=== PATIENT | female | born 1980 | race Hispanic/Latino ===

== ENCOUNTER 2019-08-05 17:48 | Emergency (ER) | payer OTHER ==
[~2019-08-05] VITALS: Ht 165.1 cm; Wt 103.9 kg
--- OUTSIDE RECORDS SUMMARY | 2019-08-05 17:50 | XMS REPORT ---
[facility] Address Unknown Phone Unavailable Care Team [facility] Assistant Name Role Phone Unavailable Unavailable Payers Payer Name Policy Type Policy Number Effective Date Expiration Date Problems This patient has no known problems. Allergies, Adverse Reactions, Alerts Allergy Name Allergy Type Status Severity Reaction(s) Onset Date Inactive Date Treating Clinician Comments morphine DA Active U 2019-06-27 00:00:00 ibuprofen DA Active MO 2019-06-27 00:00:00 promethazine DA Active U 2019-06-27 00:00:00 morphine DA Active MO 2018-11-22 00:00:00 ibuprofen DA Active MO 2018-11-22 00:00:00 morphine DA Active U 2018-09-02 00:00:00 ibuprofen DA Active MO 2018-09-02 00:00:00 promethazine DA Active U 2018-09-02 00:00:00 morphine DA Active U 2018-03-16 00:00:00 ibuprofen DA Active MO 2018-03-16 00:00:00 promethazine DA Active U 2018-03-16 00:00:00 Medications This patient has no known medications. Encounters Start Date/Time End Date/Time Encounter Type Admission Type Attending Clinicians Care Facility Care Department Encounter ID 2019-08-03 00:00:00 2019-08-03 00:00:00 Outpatient [facility] [id number] 2019-07-31 00:00:00 2019-07-31 00:00:00 Outpatient [facility] [id number] 2019-07-23 00:00:00 2019-07-23 00:00:00 Outpatient [facility] [id number] 2019-05-25 00:00:00 2019-05-25 00:00:00 Outpatient [facility] [id number] 2019-05-09 00:00:00 2019-05-09 00:00:00 Outpatient [facility] [id number] 2019-05-01 00:00:00 2019-05-01 00:00:00 Outpatient [facility] [id number] 2019-04-25 00:00:00 2019-04-25 00:00:00 Outpatient [facility] [id number] 2019-04-10 00:00:00 2019-04-10 00:00:00 Outpatient [facility] [id number] 2019-04-04 00:00:00 2019-04-04 00:00:00 Outpatient [facility] [id number] 2019-03-26 00:00:00 2019-03-26 00:00:00 Outpatient [facility] [id number] 2019-03-26 00:00:00 2019-03-26 00:00:00 Outpatient [facility] [id number] 2019-03-22 15:19:06 2019-03-22 15:19:06 Outpatient [facility] [id number] 2019-03-14 08:04:13 2019-03-14 08:04:13 Outpatient [facility] [id number] 2019-03-13 08:53:59 2019-03-13 08:53:59 Outpatient [facility] [id number] 2019-02-16 00:00:00 2019-02-16 00:00:00 Outpatient [facility] [id number] 2019-02-15 13:45:34 2019-02-15 13:45:34 Outpatient [facility] [id number] 2019-02-06 00:00:00 2019-02-06 00:00:00 Outpatient [facility] [id number] 2019-01-30 00:00:00 2019-01-30 00:00:00 Outpatient [facility] [id number] 2019-01-26 08:40:28 2019-01-26 08:40:28 Outpatient [facility] [id number] 2019-01-23 00:00:00 2019-01-23 00:00:00 Outpatient [facility] [id number] 2019-01-22 00:00:00 2019-01-22 00:00:00 Outpatient [facility] [id number] 2019-01-11 07:57:14 2019-01-11 07:57:14 Outpatient [facility] [id number] 2019-01-11 06:27:18 2019-01-11 06:27:18 Outpatient [facility] [id number] 2019-01-10 00:00:00 2019-01-10 00:00:00 Outpatient [facility] [id number] 2019-01-09 09:04:26 2019-01-09 09:04:26 Outpatient [facility] [id number] 2019-01-09 07:59:37 2019-01-09 07:59:37 Outpatient [facility] [id number] 2019-01-04 00:00:00 2019-01-04 00:00:00 Outpatient [facility] [id number] 2018-12-28 09:22:50 2018-12-28 09:22:50 Outpatient [facility] [id number] 2018-12-28 07:56:00 2018-12-28 07:56:00 Outpatient [facility] [id number] 2018-12-28 00:00:00 2018-12-28 00:00:00 Outpatient [facility] [id number] 2018-12-27 08:16:24 2018-12-27 08:16:24 Outpatient [facility] [id number] 2018-12-27 08:10:11 2018-12-27 08:10:11 Outpatient [facility] [id number] 2018-12-26 00:00:00 2018-12-26 00:00:00 Outpatient [facility] [id number] 2018-12-19 11:13:35 2018-12-19 11:13:35 Outpatient [facility] [id number] 2018-12-18 14:50:53 2018-12-18 14:50:53 Outpatient [facility] [id number] 2018-12-18 00:00:00 2018-12-18 00:00:00 Outpatient [facility] [id number] 2018-12-11 15:44:35 2018-12-11 15:44:35 Outpatient [facility] [id number] 2018-12-11 14:32:00 2018-12-11 14:32:00 Outpatient [facility] [id number] 2018-12-08 00:00:00 2018-12-08 00:00:00 Outpatient [facility] [id number] 2018-12-07 00:00:00 2018-12-07 00:00:00 Outpatient [facility] [id number] 2018-11-24 00:00:00 2018-11-24 00:00:00 Outpatient [facility] [id number] 2018-11-16 15:02:30 2018-11-16 15:02:30 Outpatient [facility] [id number] 2018-11-09 00:00:00 2018-11-09 00:00:00 Outpatient [facility] [id number] 2018-10-27 10:23:18 2018-10-27 10:23:18 Outpatient [facility] [id number] 2018-10-27 10:11:06 2018-10-27 10:11:06 Outpatient [facility] [id number] 2018-10-25 14:40:01 2018-10-25 14:40:01 Outpatient [facility] [id number] 2018-10-10 00:00:00 2018-10-10 00:00:00 Outpatient [facility] [id number] 2018-10-02 13:47:38 2018-10-02 13:47:38 Outpatient [facility] [id number] 2018-09-25 13:38:29 2018-09-25 13:38:29 Outpatient [facility] [id number] 2018-09-25 00:00:00 2018-09-25 00:00:00 Outpatient [facility] [id number] 2018-09-08 00:00:00 2018-09-08 00:00:00 Outpatient [facility] [id number] 2018-09-07 00:00:00 2018-09-07 00:00:00 Outpatient [facility] [id number] 2018-09-04 00:00:00 2018-09-04 00:00:00 Outpatient [facility] [id number] 2018-08-28 00:00:00 2018-08-28 00:00:00 Outpatient [facility] [id number] 2018-08-28 00:00:00 2018-08-28 00:00:00 Outpatient [facility] [id number] 2018-08-24 09:16:48 2018-08-24 09:16:48 Outpatient [facility] [id number] 2018-08-24 00:00:00 2018-08-24 00:00:00 Outpatient [facility] [id number] 2018-08-24 00:00:00 2018-08-24 00:00:00 Outpatient [facility] [id number] 2018-08-23 00:00:00 2018-08-23 00:00:00 Outpatient [facility] [id number] 2018-08-16 09:03:56 2018-08-16 09:03:56 Outpatient [facility] [id number] 2018-08-16 00:00:00 2018-08-16 00:00:00 Outpatient [facility] [id number] 2018-08-09 00:00:00 2018-08-09 00:00:00 Outpatient [facility] [id number] 2018-08-07 06:58:09 2018-08-07 06:58:09 Outpatient [facility] [id number] 2018-08-04 13:37:05 2018-08-04 13:37:05 Outpatient [facility] [id number] 2018-07-28 00:00:00 2018-07-28 00:00:00 Outpatient [facility] [id number] 2018-07-20 09:11:02 2018-07-20 09:11:02 Outpatient [facility] [id number] 2018-07-20 00:00:00 2018-07-20 00:00:00 Outpatient [facility] [id number] 2018-07-13 00:00:00 2018-07-13 00:00:00 Outpatient [facility] [id number] 2018-07-12 15:11:04 2018-07-12 15:11:04 Outpatient [facility] [id number] 2018-07-12 14:07:33 2018-07-12 14:07:33 Outpatient [facility] [id number] 2018-07-07 10:34:55 2018-07-07 10:34:55 Outpatient [facility] [id number] 2018-07-05 09:11:46 2018-07-05 09:11:46 Outpatient [facility] [id number] 2018-07-05 00:00:00 2018-07-05 00:00:00 Outpatient [facility] [id number] 2018-07-03 00:00:00 2018-07-03 00:00:00 Outpatient [facility] [id number] 2018-06-30 14:25:33 2018-06-30 14:25:33 Outpatient [facility] [id number] 2018-06-23 00:00:00 2018-06-23 00:00:00 Outpatient [facility] [id number] 2018-06-16 00:00:00 2018-06-16 00:00:00 Outpatient [facility] [id number] 2018-06-15 00:00:00 2018-06-15 00:00:00 Outpatient [facility] [id number] 2018-06-14 00:00:00 2018-06-14 00:00:00 Outpatient [facility] [id number] 2018-06-13 00:00:00 2018-06-13 00:00:00 Outpatient [facility] [id number] 2018-06-12 00:00:00 2018-06-12 00:00:00 Outpatient [facility] [id number] 2018-06-12 00:00:00 2018-06-12 00:00:00 Outpatient [facility] [id number] 2018-06-08 00:00:00 2018-06-08 00:00:00 Outpatient [facility] [id number] 2018-06-07 00:00:00 2018-06-07 00:00:00 Outpatient [facility] [id number] 2018-05-22 00:00:00 2018-05-22 00:00:00 Outpatient [facility] [id number] 2018-05-16 00:00:00 2018-05-16 00:00:00 Outpatient [facility] [id number] 2018-05-05 12:41:04 2018-05-05 12:41:04 Outpatient [facility] [id number] 2018-05-04 00:00:00 2018-05-04 00:00:00 Outpatient [facility] [id number] 2018-05-01 00:00:00 2018-05-01 00:00:00 Outpatient [facility] [id number] 2018-04-26 00:00:00 2018-04-26 00:00:00 Outpatient [facility] [id number] 2018-04-24 00:00:00 2018-04-24 00:00:00 Outpatient [facility] [id number] 2018-04-21 00:00:00 2018-04-21 00:00:00 Outpatient [facility] [id number] 2018-04-20 13:00:06 2018-04-20 13:00:06 Outpatient [facility] [id number] 2018-04-18 00:00:00 2018-04-18 00:00:00 Outpatient [facility] [id number] 2018-04-12 07:22:43 2018-04-12 07:22:43 Outpatient [facility] [id number] 2018-04-12 00:00:00 2018-04-12 00:00:00 Outpatient [facility] [id number] 2018-03-23 15:52:55 2018-03-23 15:52:55 Outpatient [facility] [id number] 2018-03-09 09:25:27 2018-03-09 09:25:27 Outpatient [facility] [id number] 2018-02-28 00:00:00 2018-02-28 00:00:00 Outpatient [facility] [id number] 2018-01-25 00:00:00 2018-01-25 00:00:00 Outpatient [facility] [id number] 2018-01-24 13:07:36 2018-01-24 13:07:36 Outpatient [facility] [id number] 2018-01-24 08:21:27 2018-01-24 08:21:27 Outpatient [facility] [id number] 2018-01-17 00:00:00 2018-01-17 00:00:00 Outpatient [facility] [id number] 2018-01-09 00:00:00 2018-01-09 00:00:00 Outpatient [facility] [id number] 2018-01-06 00:00:00 2018-01-06 00:00:00 Outpatient [facility] [id number] 2017-12-28 00:00:00 2017-12-28 00:00:00 Outpatient [facility] [id number] 2017-12-21 00:00:00 2017-12-21 00:00:00 Outpatient [facility] [id number] 2017-12-21 00:00:00 2017-12-21 00:00:00 Outpatient [facility] [id number] 2017-12-21 00:00:00 2017-12-21 00:00:00 Outpatient [facility] [id number] 2017-12-15 09:20:42 2017-12-15 09:20:42 Outpatient [facility] [id number] 2017-12-12 00:00:00 2017-12-12 00:00:00 Outpatient [facility] [id number] 2017-12-06 00:00:00 2017-12-06 00:00:00 Outpatient [facility] [id number] 2017-11-29 00:00:00 2017-11-29 00:00:00 Outpatient [facility] [id number] 2017-11-23 00:00:00 2017-11-23 00:00:00 Outpatient [facility] [id number] 2017-10-28 10:02:57 2017-10-28 10:02:57 Outpatient [facility] [id number] 2017-10-28 00:00:00 2017-10-28 00:00:00 Outpatient [facility] [id number] 2017-10-26 08:02:53 2017-10-26 08:02:53 Outpatient [facility] [id number] 2017-10-24 00:00:00 2017-10-24 00:00:00 Outpatient [facility] [id number] 2017-10-14 07:55:43 2017-10-14 07:55:43 Outpatient [facility] [id number] 2017-09-22 08:19:57 2017-09-22 08:19:57 Outpatient [facility] [id number] 2017-09-22 08:08:58 2017-09-22 08:08:58 Outpatient [facility] [id number] 2017-09-14 00:00:00 2017-09-14 00:00:00 Outpatient [facility] [id number] 2017-09-06 00:00:00 2017-09-06 00:00:00 Outpatient [facility] [id number] 2017-09-02 08:58:42 2017-09-02 08:58:42 Outpatient [facility] [id number] 2017-08-23 13:28:33 2017-08-23 13:28:33 Outpatient [facility] [id number] 2017-08-23 12:32:26 2017-08-23 12:32:26 Outpatient [facility] [id number] 2017-08-15 00:00:00 2017-08-15 00:00:00 Outpatient [facility] [id number] 2017-08-15 00:00:00 2017-08-15 00:00:00 Outpatient [facility] [id number] 2017-07-21 09:19:53 2017-07-21 09:19:53 Outpatient [facility] [id number] 2017-07-05 11:16:34 2017-07-05 11:16:34 Outpatient [facility] [id number] 2017-07-04 00:00:00 2017-07-04 00:00:00 Outpatient [facility] [id number] 2017-06-24 06:11:00 2017-06-24 06:11:00 Outpatient [facility] [id number] 2017-06-24 00:00:00 2017-06-24 00:00:00 Outpatient [facility] [id number] 2017-06-21 09:17:14 2017-06-21 09:17:14 Outpatient [facility] [id number] 2017-06-21 00:00:00 2017-06-21 00:00:00 Outpatient [facility] [id number] 2017-06-13 11:44:50 2017-06-13 11:44:50 Outpatient [facility] [id number] 2017-06-07 00:00:00 2017-06-07 00:00:00 Outpatient [facility] [id number] 2017-05-31 00:00:00 2017-05-31 00:00:00 Outpatient [facility] [id number] 2017-05-26 08:44:01 2017-05-26 08:44:01 Outpatient [facility] [id number] 2017-05-25 00:00:00 2017-05-25 00:00:00 Outpatient [facility] [id number] 2017-05-25 00:00:00 2017-05-25 00:00:00 Outpatient [facility] [id number] 2017-05-20 10:53:28 2017-05-20 10:53:28 Outpatient [facility] [id number] 2017-05-20 10:50:44 2017-05-20 10:50:44 Outpatient [facility] [id number] 2017-05-16 14:24:43 2017-05-16 14:24:43 Outpatient [facility] [id number] 2017-05-10 12:06:36 2017-05-10 12:06:36 Outpatient [facility] [id number] 2017-05-04 11:28:37 2017-05-04 11:28:37 Emergency [facility] [id number] 2017-05-04 09:09:38 2017-05-04 09:09:38 Emergency [facility] [id number] 2017-05-04 00:00:00 2017-05-04 00:00:00 Outpatient [facility] [id number] 2017-04-29 10:08:00 2017-04-29 10:08:00 Outpatient [facility] [id number] 2017-04-28 08:30:39 2017-04-28 08:30:39 Outpatient [facility] [id number] 2017-04-27 10:41:45 2017-04-27 10:41:45 Outpatient [facility] [id number] 2017-04-27 10:05:42 2017-04-27 10:05:42 Outpatient [facility] [id number] 2017-04-27 07:42:58 2017-04-27 07:42:58 Outpatient [facility] [id number] 2017-04-25 16:01:55 2017-04-25 16:01:55 Outpatient [facility] [id number] 2017-04-20 14:52:12 2017-04-20 14:52:12 Outpatient [facility] [id number] 2017-04-20 12:05:42 2017-04-20 12:05:42 Outpatient [facility] [id number] 2017-04-06 09:13:48 2017-04-06 09:13:48 Outpatient [facility] [id number] 2017-04-05 13:55:51 2017-04-05 13:55:51 Outpatient [facility] [id number]
[2019-08-05] MEDS ORDERED: SODIUM CHLORIDE 0.9% 1000ML 1,000 ML IV STA (18:01)
[2019-08-05] MEDS ORDERED: MORPHINE SULFATE INJ 4 MG/ML INJ 1ML IV STA (18:01)
[2019-08-05] MEDS ORDERED: ONDANSETRON HCL INJ 2MG/ML 2ML 2 MG/ML VIAL IV NR (18:01)
[2019-08-05 18:35] LABS: BASOPHILS % 0.3 % (0.0-1.0); EOSINOPHILS # (AUTO) 0.5 (0.0-0.4); EOSINOPHILS % 3.6 % (0.0-6.0); HEMATOCRIT 44.2 % (34.2-44.1); HEMOGLOBIN 14.5 g/dL (12.0-16.0); LYMPHOCYTES # (AUTO) 2.5 (1.0-3.2); LYMPHOCYTES % 19.8 % (18.0-39.1); MEAN CORPUSCULAR HGB CONC 32.8 g/dL (31-35); MEAN CORPUSCULAR VOLUME 85.3 fL (81-99); MONOCYTES # (AUTO) 0.8 (0.2-0.8); MONOCYTES % 6.5 % (4.4-11.3); NEUTROPHILS # (AUTO) 8.7 (2.1-6.9); NEUTROPHILS % 69.2 % (38.7-80.0); PLATELET COUNT 326 x10e3/uL (140-360); RED BLOOD COUNT 5.18 x10e6/uL (3.6-5.1); RED CELL DISTRIBUTION WIDTH 12.6 % (11.7-14.4)
[2019-08-05 18:41] LABS: COLOR,URINE YELLOW (YELLOW)
[2019-08-05 18:42] LABS: CLARITY,URINE CLEAR (CLEAR); LEUKOCYTE ESTERASE ,URINE TRACE (NEGATIVE)
[2019-08-05 18:43] LABS: INR 0.92; NITRITE,URINE NEGATIVE (NEGATIVE); PROTEIN,URINE DIPSTICK NEGATIVE (NEGATIVE); PROTHROMBIN TIME 12.8 seconds (11.9-14.5)
[2019-08-05 18:44] LABS: KETONES,URINE NEGATIVE (NEGATIVE); URINE UROBILINOGEN 0.2 mg/dL (0.2 - 1)
[2019-08-05 18:45] LABS: BACTERIA,URINE RARE /HPF; BILIRUBIN,URINE NEGATIVE (NEGATIVE); EPITHELIAL CELLS,URINE FEW /LPF; RBC,URINE 0-5 /HPF (0-5); WBC,URINE (MAN) 0-5 /HPF (0-5)
[2019-08-05 18:52] LABS: ALANINE AMINOTRANSFERASE 46 IU/L (0-55); ALBUMIN 3.2 g/dL (3.5-5.0); ALBUMIN/GLOBULIN RATIO 0.8 (0.8-2.0); ALKALINE PHOSPHATASE 162 IU/L (40-150); AMYLASE 25 U/L (25-125); ANION GAP 13.2 mmol/L (8-16); BLOOD UREA NITROGEN 15 mg/dL (7-26); BUN/CREATININE RATIO 17 (6-25); CALCIUM 9.4 mg/dL (8.4-10.2); CARBON DIOXIDE 26 mmol/L (22-29); CHLORIDE 100 mmol/L (98-107); CREATINE KINASE 36 IU/L (29-168); CREATININE, SERUM 0.89 mg/dL (0.57-1.11); EST GLOMERULAR FILTRATION RATE > 60 ML/MIN (60-); LIPASE 20 U/L (8-78); POTASSIUM 4.2 mmol/L (3.5-5.1); SODIUM 135 mmol/L (136-145)
[2019-08-05 19:09] LABS: GLUCOSE 417 mg/dL (74-118)
[2019-08-05] MEDS ORDERED: INSULIN REGULAR, HUMAN 100 UNIT/1 ML 3ML VIAL IV ONE (19:15)
[2019-08-05] MEDS ORDERED: HYDROMORPHONE 1MG/1ML INJ IV NR (19:15)
[2019-08-05] MEDS ORDERED: IOPAMIDOL 370 MG/ML 200 ML INFUS..BTL INJ ONE (20:02)
[2019-08-05] MEDS ORDERED: SODIUM CHLORIDE 0.9% 50ML 50 ML ONE (20:02)
--- NOTE | 2019-08-05 20:13 | Diagnostic Imaging Report ---
Examination: Single AP view of the chest. COMPARISON: None. INDICATION: Upper abdominal pain IMPRESSION: 1. Lines and Tubes: None 2. Lungs are grossly clear. No consolidation or effusion. 3. Cardiomediastinal silhouette is normal. Pulmonary vasculature is normal. 4. No acute bony abnormalities. Signed by: Dr. Barrie Naranjo M.D. on 08/05/2019 8:10 PM
--- NOTE | 2019-08-05 21:00 | Diagnostic Imaging Report ---
EXAMINATION: CT of the abdomen and pelvis with contrast. TECHNIQUE: Spiral CT images of the abdomen and pelvis were performed from the lung bases to the lesser trochanters after the intravenous administration of 100 cc of Isovue 370 and the oral administration of water. Coronal and sagittal reformatted images were obtained. COMPARISON: None. CLINICAL HISTORY:Epigastric pain, nausea and vomiting DISCUSSION: ABDOMEN/PELVIS: LOWER THORAX:Unremarkable. HEPATOBILIARY: Moderate hepatomegaly measuring 21.4 cm in the right midclavicular line, with marked diffuse hepatic steatosis. No focal lesions. No intra or extrahepatic biliary ductal dilation. GALLBLADDER: No radio-opaque stones or sludge. No wall thickening. SPLEEN: Mild splenomegaly, measuring 13.6 cm in AP diameter. PANCREAS: No focal masses or ductal dilatation. ADRENALS: No adrenal nodules. KIDNEYS/URETERS: No hydronephrosis, stones, or solid mass lesions. PELVIC ORGANS/BLADDER: Bladder is unremarkable. No adnexal masses. Uterus is absent. PERITONEUM/RETROPERITONEUM: No free air or fluid. LYMPH NODES: No intra-abdominal, retroperitoneal, pelvic or inguinal lymphadenopathy. VESSELS: The celiac trunk,superior and inferior mesenteric and bilateral renal arteries are patent The portal, superior mesenteric and splenic veins are patent. GI TRACT: No bowel dilation or evidence of obstruction. No pericolonic inflammatory changes. Appendix is well identified and normal in caliber. Stomach is unremarkable. BONES AND SOFT TISSUE: No aggressive lytic lesions. No soft tissue abnormalities. IMPRESSION: 1. No acute abdominopelvic abnormalities. 2. Moderate hepatomegaly and marked diffuse hepatic steatosis. 3. Mild splenomegaly. Signed by: Dr. Barrie Naranjo M.D. on 08/05/2019 8:57 PM
[2019-08-05] MEDS ORDERED: MAGNESIUM/ALUMINUM/SIMETHICONE 30 ML UDC PO ONE (21:15)
[2019-08-05] MEDS ORDERED: LIDOCAINE VISC 2% SOLN 15 ML UDC PO ONE (21:15)
[2019-08-05] MEDS ORDERED: BELLADONNA ALK/PHENOBARBITAL 5 ML UDC PO ONE (21:15)
[2019-08-05 21:45] VITALS: BP_SYST 134
== END 2019-08-05 21:49 | disposition home or self-care (01) ==
LOC: ER 17:48
DX: K29.00 Acute gastritis without bleeding (principal); E11.65 Type 2 diabetes mellitus with hyperglycemia; Z88.6 Allergy status to analgesic agent; Z88.8 Allergy status to other drugs, medicaments and biological substances
CPT/HCPCS: 36415; 71045; 74177; 80053; 81001; 82150; 82550; 82553; 82948; 83690; 84484; 85025; 85610; 85730; 99284; J1170; J1817; J2270; J2405; J7030; Q9967